=== PATIENT | female | born 1965 | race Caucasian/White ===

== ENCOUNTER 2020-03-28 11:40 | Observation (INO) | payer OTHER ==
[2020-03-28] VITALS (7 sets, daily range): BP systolic 90–115; BP diastolic 59–80
[~2020-03-28 11:40] MED LIST: MTX2.5T PO; MULT-974 PO; TRM50T PO
--- NOTE | 2020-03-28 13:58 | NUR ---
PT ARRIVES VIA EMS. PT TRANSFERS TO BED WITH NO DIFFICULTIES. CARDIZEM AND AMIODARONE INFUSING AT THIS TIME. DR MOULTON AND DR PINK NOTIFIED OF PATIENTS ARRIVAL. EKG OBTAINED, PT APPEARS IN NSR RATE 74 UPON ADMISSION. SBP 90'S AT THIS TIME. PT REPORTS THIS IS HER NORMAL BLOOD PRESSURE.
--- NOTE | 2020-03-28 15:41 | Consultation-Cardiology ---
HPI-Cardiology Cardiology Consultation: Date of Consultation 03/28/20 Date of Admission Attending Physician Bianca Pink MD Admitting Physician [facility] Consulting Physician Tyree PARSONS MD HPI: Time Seen by a Provider: 15:00 Chief Complaint: Palpitations This is a 55-year-old lady with history of atrial fibrillation. She presents to an outside ER with complains of palpitations. She has history of active smoking. Pertinent family history is negative. She was found to be in typical atrial flutter. Adenosine was given with slow down the heart rate, she then converted to atrial fibrillation. The ER nurse practitioner called me over the phone and we gave Cardizem as well as amiodarone. By the time the patient reached our hospital she had converted to sinus rhythm. She denies any chest pain or shortness of breath. Review of Systems-Cardiology Review of Systems Constitutional: As described under HPI; No As described under HPI, No no symptoms reported, No chills, No fever, No lightheadedness Eyes: No As described under HPI, No no symptoms reported, No blindness, No blurred vision, No contact lenses, No drainage, No decreased acuity, No foreign body sensation, No pain, No vision change Ears/Nose/Throat: No As described under HPI, No no symptoms reported, No chronic hearing loss, No ear discharge, No ear pain, No nasal drainage, No ulcerations Respiratory: No no symptoms reported; As described under HPI; No As described under HPI, No cough, No orthopnea, No shortness of breath, No SOB with excertion Cardiovascular: No no symptoms reported; As described under HPI; No As described under HPI, No chest pain, No edema, No irregular heart rate, No lightheadedness; palpitations Gastrointestinal: No no symptoms reported, No As described under HPI, No abdomen distended, No abdominal pain, No blood streaked bowels, No constipation, No diarrhea, No nausea, No vomiting, No stool coloration changes Genitourinary: No As described under HPI, No burning, No dysuria, No discharge, No frequency, No flank pain, No hematuria, No urgency : Yes : No Skin: No rash, No skin related problems, No ulcerations Psychiatric/Neurological: No anxiety, No depression, No seizure, No focal weakness, No syncope Hematologic: No bleeding abnormalities KRF-[id number]-Rgmpji Hx Past Medical History PMH As described under Assessment. Allergies and Home Medications Allergies Coded Allergies: Penicillins (Unverified Allergy, Unknown, 10/14/06) erythromycin base (Unverified Allergy, Unknown, 10/14/06) meloxicam (Unverified Allergy, Unknown, 10/14/06) morphine (Unverified Allergy, Unknown, 10/14/06) tetracycline (Unverified Allergy, Unknown, 10/14/06) Home Medications Apixaban 5 Mg Tablet, 5 MG PO BID Prescribed by: BIANCA PINK on 03/28/201946 Methotrexate 2.5 Mg Tab, 1 EACH PO 4 times weekly, (Reported) Multivitamin 1 Each Tablet, 1 EACH PO DAILY, (Reported) Tramadol Hcl 50 Mg Tab, 50 MG PO Q6H Prescribed by: KELLIE FAIRCHILD on 05/05/12 2246 Patient Home Medication List Home Medication List Reviewed: Yes Physical Exam-Cardiology Physical Exam Vital Signs/I&O Capillary Refill : Constitutional: appears stated age; No apparent distress; well-developed, well- nourished HEENT: PERRL; No discharge; hearing is well preserved, oral hygience is good; No ulceration, No xanthelasmas are seen Neck: No carotid bruit; carotid pulses are 2 + bilaterally Respiratory: chest is bilaterally symmetric, lungs clear to auscultation Cardiovascular: regular rate-rhythm, S1 and S2; No diastolic murmur, No systolic murmur Gastrointestinal: soft, audible bowel sounds; No spleenomegaly Rectal: deferred Extremities: normal range of motion, non-tender, normal inspection; No clubbing, No cyanosis; no lower extremity edema bilateral; No significant edema Neurologic/Psychiatric: no motor/sensory deficits, alert, normal mood/affect, oriented x 3, power is 5/5 both on sides Skin: normal color; No rash, No ulcerations Data Review Labs ECG Impression ECG Comment First EKG from outside hospital shows typical atrial flutter with 2-1 AV block. Next EKG shows atrial fibrillation with RVR. Sinus rhythm in our hospital. A/P-Cardiology Assessment/Admission Diagnosis Typical atrial flutter, Atrial fibrillation with RVR, Active smoking, Hyperglycemia Plan Typical atrial flutter which degenerated into atrial fibrillation. Currently in sinus rhythm. I discussed at length about typical atrial flutter ablation. Informed consent was taken. 1 percent risk of major complication including . Patient accepts the risk and would like to proceed. We will arrange it on . Patient will continue Eliquis. By mouth Cardizem. Request an echocardiogram. Atrial fibrillation with RVR, converted on IV amiodarone. DC amiodarone infusion. Change Cardizem to by mouth. Echocardiogram before discharge. Smoking cessation was strongly recommended. Hyperglycemia, diabetes needs to be ruled out. Defer to the primary team. Thank you for your consultation. Please call me if you have any questions. Howard Parsons MD, FACP, FACC, FSCAI, FHRS, CCDS Interventional Cardiology Cardiac Electrophysiology Vascular Medicine and Endovascular Interventions Tyree PARSONS MD Mar 28, 2020 15:41
[2020-03-28] MEDS ORDERED: dilTIAZem120 MG (CARDIZEM CD) CAP PO ONE (16:04)
--- NOTE | 2020-03-28 17:00 | NUR ---
DR MOULTON WOULD LIKE EP STUDY DONE ON SATURDAY OF THIS WEEK. SPOKE WITH TIM, HIS RN, TIM STATES THAT SHE WILL BE UNABLE TO SCHEDULE UNTIL PATIENT SPEAKS WITH FINANCIAL SERVICES SINCE SHE IS SELF PAY. THIS RN SPOKE WITH [employer] AND RECEIVED PHONE NUMBERS FOR TWO STAFF IN FINANCIAL SERVICES. THIS WAS GIVEN TO PATIENT. LM WITH TIM AT DR ABDI OFFICE TO UPDATE. DR ABDI OFFICE NUMBER GIVEN TO PATIENT. CALLED DR MOULTON AND UPDATED. UPDATED ON SBP IN THE 90'S AND UNABLE TO GIVE PO CARDIZEM. ALL DRIPS OF AT THIS TIME PER DR MOULTON. DR MOULTON STATED THAT HE IS OK WITH NOT GIVING PO CARDIZEM AND IS OK WITH PATIENT GOING HOME TONIGHT. DR PINK NOTIFIED.
--- NOTE | 2020-03-28 19:37 | Short Stay Summary ---
HPI History of Present Illness: 55 yo F that presented to [facility] in Atrial fibrillation in RVR. Dr Parsons was called and gave patient amiodarone bolus and gtts and was started on cardizem drip. Patient states that she feels when her heart starts racing. She had an episode on Saturday that last about 30 mins that also had some chest pain with it. She denies any history of CAD or stents. She was started on inhalers last week for COPD. States that she is feeling so much better now. She has been in SR since her arrival. Source: patient, family Exam Limitations: no limitations Date seen by provider: Mar 28, 2020 Time Seen by Provider: 19:38 Attending Physician Bianca Cuevas MD [facility] Consult Date of Admission Mar 28, 2020 at 13:48 Home Medications Home Medications Reviewed patient Home Medication Reconciliation performed by pharmacy medication reconciliations patient care technician and/or nursing. Patients Allergies have been reviewed. Allergies Coded Allergies: Penicillins (Unverified Allergy, Unknown, 10/14/06) erythromycin base (Unverified Allergy, Unknown, 10/14/06) meloxicam (Unverified Allergy, Unknown, 10/14/06) morphine (Unverified Allergy, Unknown, 10/14/06) tetracycline (Unverified Allergy, Unknown, 10/14/06) RLW-Igwkcl-Uszwne Hx Past Medical History COPD Tobacco Abuse Review of Systems ([facility]) Constitutional: no symptoms reported; No chills, No fever, No malaise EENTM: no symptoms reported; No mouth pain, No nose congestion, No throat pain Respiratory: cough (chronic); No dyspnea on exertion, No short of breath Cardiovascular: No chest pain, No edema; palpitations Gastrointestinal: no symptoms reported; No abdominal pain, No constipation, No diarrhea, No nausea, No vomiting Genitourinary: no symptoms reported; No dysuria, No frequency, No hematuria : No Musculoskeletal: no symptoms reported; No back pain, No muscle pain Skin: no symptoms reported; No lesions, No rash Psychiatric/Neurological: No Symptoms Reported Reviewed Test Results Reviewed Test Results Lab Laboratory Tests Test 03/28/20 15:21 Range/Units Troponin I < 0.028 <0.028 NG/ML B-Type Natriuretic Peptide 12.7 <100.0 PG/ML Physical Exam-([facility]) Physical Exam Vital Signs VS - Last 72 Hours, by Label 03/28/20 03/28/20 03/28/20 03/28/20 14:00 14:54 15:00 15:59 Temp 36.2 Pulse 72 72 Resp 44 18 B/P (MAP) 100/76 (84) 115/74 (88) Pulse Ox 96 97 O2 Delivery Room Air Room Air 03/28/20 03/28/20 03/28/20 16:00 17:00 18:00 Pulse 78 91 70 Resp 44 18 29 B/P (MAP) 90/62 (71) 100/80 (87) 97/59 (72) Pulse Ox 98 96 96 O2 Delivery Room Air Room Air Room Air Capillary Refill : General Appearance: WD/WN, no apparent distress HEENT: PERRL/EOMI Neck: non-tender, full range of motion, supple Respiratory: chest non-tender, lungs clear, normal breath sounds, no respiratory distress, no accessory muscle use Cardiovascular: normal peripheral pulses, regular rate, rhythm, no edema, no murmur Gastrointestinal: normal bowel sounds, non tender, soft, no organomegaly Back: no CVA tenderness, no vertebral tenderness Extremities: normal range of motion, non-tender, normal inspection, no pedal edema, no calf tenderness, normal capillary refill Neurologic/Psychiatric: oracle bpm consultant II-XII nml as tested, no motor/sensory deficits, alert, normal mood/affect, oriented x 3 Skin: normal color, warm/dry Lymphatic: no adenopathy Short Stay Diagnosis Discharge Diagnosis-Short Stay Admission Diagnosis Atrial Fibrillation with RVR Chronic COPD Tobacco Abuse Final Discharge Diagnosis See Above Conclusion Plan See problem list Copy Copies To 1: [facility] Assessment/Plan Assessment/Plan Admission Status: Observation (1) Atrial fibrillation with RVR Status: Acute Assessment & Plan: 03/28: Dr Parsons consulted out of the ED, Patient started on OAC, unable to start daily cardizem due to low blood pressures. Echo done today, pending results, CE x3 neg, patient in SR, Dr Parsons ok with patient discharge to have outpatient EP study (2) Tobacco abuse Status: Acute Assessment & Plan: - Discussed the need for cessation BIANCA CUEVAS MD Mar 28, 2020 19:37
[2020-03-28] MEDS ORDERED: APIX5TAB PO (19:47)
--- NOTE | 2020-03-28 19:48 | Discharge Summary ---
Discharge [facility] Reconcile Patient Problems Problems Reviewed?: Yes Discharge Medications New, Converted or Re-Newed RX: Transmitted to Pharmacy New Medications: Apixaban (Eliquis) 5 Mg Tablet 5 MG PO BID, #60 TAB Continued Medications: Methotrexate (Methotrexate) 2.5 Mg Tab 1 EACH PO 4 times weekly Multivitamin (Multi Vitamin Daily) 1 Each Tablet 1 EACH PO DAILY Tramadol Hcl (Ultram) 50 Mg Tab 50 MG PO Q6H, #30 Patient Instructions Goal/Follow Up Appt: Will have f.u with [facility] PCP this week Will have f.u with Cardiology for EP study Activity & Diet Discharge Diet: Cardiac Diet Activity as Tolerated: Yes BIANCA PINK MD Mar 28, 2020 19:48
[2020-03-28] MEDS ORDERED: APIXABAN 5 MG (ELIQUIS) TABLET PO SCH (21:00)
[2020-03-29] MEDS ORDERED: dilTIAZem120 MG (CARDIZEM CD) CAP PO SCH (09:00)
== END 2020-03-28 19:44 | disposition home or self-care (01) ==
LOC: ICU 13:48 → INTOOBSV 13:48 → UNDOADMOB 13:48 → ICU 13:58 → UNDODISOB 20:20
PROVIDERS: ADMIT Family Medicine; ATTEND Family Medicine
DX: I48.91 Unspecified atrial fibrillation (principal); E72.51 Non-ketotic hyperglycinemia; J44.9 Chronic obstructive pulmonary disease, unspecified; F17.210 Nicotine dependence, cigarettes, uncomplicated; Z79.01 Long term (current) use of anticoagulants; Z79.899 Other long term (current) drug therapy; Z88.0 Allergy status to penicillin; Z88.1 Allergy status to other antibiotic agents; Z88.5 Allergy status to narcotic agent
CPT/HCPCS: 83880; 84484; 93005; 93306; G0378; G0379; 36415; 99211

== ENCOUNTER 2020-04-01 06:59 | Day surgery (SDC) | payer OTHER ==
[2020-04-01] VITALS (20 sets, daily range): BP systolic 95–136; BP diastolic 59–79
[~2020-04-01] VITALS: Ht 160 cm; Wt 45.5 kg
[~2020-04-01 06:59] MED LIST changes: +APIX5TAB PO
[2020-04-01] MEDS ORDERED: NS IV 1000 ML 1,000 ML IV SCH (07:16)
[2020-04-01] MEDS ORDERED: HEParin (CATH LAB) 2,000 ML IV ONE (07:18)
[2020-04-01] MEDS ORDERED: LIDOCAINE 1% INJ 20 ML 20 ML VIAL ONE (07:18)
[2020-04-01] MEDS ORDERED: NS IV 1000 ML 1,000 ML ONE ×2 (07:18→09:44)
[2020-04-01] MEDS ORDERED: ISOPROTERENOL 0.2 MG/D5W 50 ML IV ONE (07:30)
[2020-04-01] MEDS ORDERED: MIDAZOLAM 2 MG/2 ML (VERSED) VIAL ONE (07:36)
[2020-04-01] MEDS ORDERED: ONDANSETRON 4 MG/2 ML (SDV) Z0FRAN ONE (07:36)
[2020-04-01] MEDS ORDERED: PROPOFOL DRIP (ICU) 100 ML IV ONE (07:36)
[2020-04-01] MEDS ORDERED: fentaNYL INJECTION 100 MCG/2 ML AMP ONE (07:37)
[2020-04-01 07:45] LABS: PROTHROMBIN TIME PATIENT 13.4 SEC (12.2-14.7)
[2020-04-01 07:54] LABS: ALBUMIN 3.9 GM/DL (3.2-4.5); BILIRUBIN,TOTAL 0.2 MG/DL (0.1-1.0); CALCIUM 9.2 MG/DL (8.5-10.1); CREATININE SERUM 1.04 MG/DL (0.60-1.30); TOTAL PROTEIN 6.8 GM/DL (6.4-8.2)
[2020-04-01] MEDS ORDERED: RT-ALBUINH INH (07:54)
[2020-04-01] MEDS ORDERED: BUDE10.2 IH (07:54)
[2020-04-01] MEDS ORDERED: TIOT18CA2 IH (07:54)
[2020-04-01 08:38] LABS: HEMOGLOBIN 13.8 G/DL (11.5-16.0); MEAN PLATELET VOLUME 9.6 FL (7.4-10.4); WHITE BLOOD COUNT 7.5 10^3/uL (4.3-11.0)
[2020-04-01] MEDS ORDERED: KETAMINE HCL 100 MG/ML 5 ML VIAL ONE (08:46)
[2020-04-01] MEDS ORDERED: PHENYLEPHRINE 100 MCG/ML 10 ML (ANESTHESIA) SYR ONE (09:21)
[2020-04-01] MEDS ORDERED: ROCURONIUM 10 MG/ML 5 ML SYRINGE IV ONE (09:31)
[2020-04-01] MEDS ORDERED: SEVOFLURANE (ULTANE) 15 ML INHAL SOLN ONE (09:44)
[2020-04-01] MEDS ORDERED: GLYCOPYRROLATE 0.2 MG/ML (ROBINUL) 2 ML VIAL ONE (10:02)
[2020-04-01] MEDS ORDERED: NEOSTIGMINE 3 MG/3 ML VIAL ONE (10:02)
--- NOTE | 2020-04-01 10:42 | Electrophysiology Procedure ---
EP Procedure Typical Atrial Flutter Ablation DATE OF SERVICE:04/01/20 CARDIAC JOB SETTER: Howard Parsons MD, [facility] INDICATION: typical atrial flutter. PREOPERATIVE DIAGNOSIS: typical atrial flutter. POSTOPERATIVE DIAGNOSES: typical atrial flutter ablation. HISTORY: this is a 55-year-old lady who presented with typical atrial flutter which degenerated to atrial fibrillation.The patient is planned for comprehensive EP study and ablation. PROCEDURE PERFORMED: 1. Comprehensive EP study with induction. 2. Fluoroscopy. 3. left atrial pacing and recording 4. Drug infusion. 5. Ablation of typical atrial flutter. 6. Comprehensive 3D mapping with the carto system. COMPLICATION: None. ESTIMATED BLOOD LOSS: 10 mL. CONTRAST USED: None. FLUOROSCOPY TIME: 2 minutes 10 seconds. FLUOROSCOPY DOSE: 7 mgy. SPECIMENS: None. ANESTHESIA: Done by our anesthesia colleagues. ANTICOAGULATION: Eliquis PROCEDURE IN DETAIL: After informed consent was taken, the patient was brought to the EP lab. Anesthesia was provided by our anesthesia colleagues. The patient was draped and prepped in the usual sterile fashion. The patient presented to the EP lab in sinus rhythm. Access was gained in the right femoral vein with a 6-Faroese and an 8-Faroese sheath. High right atrial catheter was an ablation catheter and the CS catheter were also placed. A comprehensive EP study was done including left atrial pacing and recording which did not demonstrate a left lateral bypass tract. Typical atrial flutter was not induced with rapid atrial pacing with and without Isuprel infusion. A 3D electroanatomic mapping was donewith the carto system. Ablation was performed in the cavotricuspid isthmus.CS pacing and pacing from the ablation catheter at different positions on the lateral side of the ablation line were used to verify bidirectional block. We then waited for 30 minutes and rechecked and confirmed bidirectional block.Isuprel was given post-procedure, however, we could not induce atrial flutter.The patienttolerated the procedure well and did not have any complication. The patientleft the lab in sinus rhy thm. Total ablation time was 168 seconds. MEASUREMENTS/EP STUDY: AA interval 800 ms, WI interval 303 ms, QRS duration 54 ms, QT interval 354 ms, R-R interval 786 ms, AV Wenckebach when pacing at 480 ms cl, RV pacing did not demonstrate any retrograde conduction at pacing cycle length 600 ms, Atrial ERP was 600/280 ms. PLAN: The patient will be observed overnight and will be discharged home tomorrow with precise followup instructions. Howard Parsons MD, [facility] Cardiac Electrophysiology Tyree PARSONS MD Apr 01, 2020 10:42
[2020-04-01] MEDS ORDERED: PATIENT MAY USE OWN MEDS, ALL PO SCH (10:45)
--- NOTE | 2020-04-01 10:59 | Anesthesia-General Post-Op ---
General Patient Condition Mental Status/LOC: Same as Preop Cardiovascular: Satisfactory Nausea/Vomiting: Absent Respiratory: Satisfactory Pain: Controlled Complications: Absent Post Op Complications Complications None Follow Up Care/Instructions Patient Instructions None needed. Anesthesia/Patient Condition Patient Condition Patient is doing well, no complaints, stable vital signs, no apparent adverse anesthesia problems. No complications reported per nursing. JACQUELINE LICONA CRNA Apr 01, 2020 10:58
[2020-04-01] MEDS ORDERED: ONDANSETRON 4 MG/2 ML (SDV) Z0FRAN IVP PRN ×2 (11:00→12:15)
[2020-04-01] MEDS ORDERED: IBUPROFEN 600 MG (MOTRIN) TAB PO ONE (12:10)
[2020-04-01] MEDS: NS IV 1000 ML 1,000 ML IV SCH ×2 (12:15→14:14)
[2020-04-01] MEDS: IBUPROFEN 600 MG (MOTRIN) TAB PO PRN ×2 (12:15→21:51)
[2020-04-01] MEDS: APIXABAN 5 MG (ELIQUIS) TABLET PO SCH (21:49)
[2020-04-02 01:00] VITALS: BP 115/63
[2020-04-02 04:24] VITALS: BP 117/73
[2020-04-02] MEDS: NS IV 1000 ML 1,000 ML IV SCH (06:33)
[2020-04-02 07:09] LABS: HEMOGLOBIN 11.5 G/DL (11.5-16.0); MEAN PLATELET VOLUME 9.9 FL (7.4-10.4); WHITE BLOOD COUNT 7.4 10^3/uL (4.3-11.0)
[2020-04-02 07:24] LABS: CHLORIDE 110 MMOL/L (98-107); SODIUM 137 MMOL/L (135-145)
[2020-04-02 07:25] LABS: CALCIUM 8.2 MG/DL (8.5-10.1); GLUCOSE 134 MG/DL (70-105)
[2020-04-02 07:27] LABS: CARBON DIOXIDE 19 MMOL/L (21-32)
[2020-04-02 07:29] LABS: GFR ESTIMATED > 60
[2020-04-02 07:30] LABS: BUN/CREATININE RATIO 10
[2020-04-02 09:35] VITALS: BP 118/74
[2020-04-02] MEDS: APIXABAN 5 MG (ELIQUIS) TABLET PO SCH (09:37)
--- NOTE | 2020-04-02 10:41 | Anesthesia-General Post-Op ---
General Patient Condition Mental Status/LOC: Same as Preop Cardiovascular: Satisfactory Nausea/Vomiting: Absent Respiratory: Satisfactory Pain: Controlled Complications: Absent Post Op Complications Complications None Follow Up Care/Instructions Patient Instructions None needed. Anesthesia/Patient Condition Patient Condition Patient is doing well, no complaints, stable vital signs, no apparent adverse anesthesia problems. No complications reported per nursing. SETH STUART CRNA Apr 02, 2020 10:41
[2020-04-02 14:37] VITALS: BP 111/74
--- NOTE | 2020-04-02 15:17 | Cardiology Discharge Summary ---
Diagnosis/Chief Complaint Date of Admission 04/01/2020 Date of Discharge 04/02/2020 Admission Diagnosis Typical atrial flutter, paroxysmal atrial fibrillation Final/Discharge Diagnosis Successful typical atrial flutter ablation. Chief Complaint/HPI Chief Complaint/HPI Typical atrial flutter, paroxysmal atrial fibrillation Discharge Summary Procedures Successful typical atrial flutter ablation. Discharge Physical Examination Normal cardiovascular examination. Hospital Course Was the Problem List Reviewed?: Yes Unremarkable. Discussion & Recommendations Discussion Discharge took over 30 minutes to complete. I discussed the procedure at length with the patient and family. Patient will continue on Eliquis. Event monitor as an outpatient. I will follow-up in one to 2 weeks. Follow up appt.: Dr. Parsons in one to 2 weeks. Activity as Tolerated: Yes Home Medications Reviewed patient Home Medication Reconciliation performed by pharmacy medication reconciliations compressor service technician and/or nursing. Patients Allergies have been reviewed. Discharge Home Medications: Reviewed and agree with Discharge Medication list on patient's Discharge Instruction sheet Condition at discharge Stable. Instructions to patient/family Discussed with the patient and family. Tyree PARSONS MD Apr 02, 2020 15:17
[2020-04-02 15:29] VITALS: BP 111/74
== END 2020-04-02 15:32 | disposition home or self-care (01) ==
LOC: CATH 06:59 → CSD 11:55 → CATH 04-02 15:32
PROVIDERS: ATTEND Internal Medicine Interventional Cardiology
DX: I48.3 Typical atrial flutter (principal); I48.0 Paroxysmal atrial fibrillation; K21.9 Gastro-esophageal reflux disease without esophagitis; F17.210 Nicotine dependence, cigarettes, uncomplicated; Z79.899 Other long term (current) drug therapy; Z79.01 Long term (current) use of anticoagulants
CPT/HCPCS: 80048; 80053; 85027 ×2; 85610; 85730; 87081; 93005 ×2; 93613; 93621; 93653; C1730 ×3; C1732; C1894 ×2; 36415

== ENCOUNTER 2020-05-23 11:00 | Outpatient (RCR) | payer OTHER ==
[~2020-05-23 11:00] MED LIST changes: +BUDE10.2 IH; +RT-ALBUINH INH; +TIOT18CA2 IH
== END 2020-08-21 | disposition home or self-care (01) ==
LOC: CARD 11:00
PROVIDERS: ATTEND Internal Medicine Interventional Cardiology
DX: I48.0 Paroxysmal atrial fibrillation (principal)
CPT/HCPCS: 93270

== ENCOUNTER → 2020-10-05 | Day surgery (SDC) | payer OTHER ==
[~2020-10-05] VITALS: Ht 160 cm; Wt 45.0 kg
[~2020-10-05] MED LIST changes: +LIDOCAINE 1% INJ 20 ML 20 ML VIAL INJ ONE; +LIDOCAINE 1% INJ 20 ML 20 ML VIAL ONE; +REGADENOSON 0.4 MG/5 ML SYR (LEXISCAN) IV ONE
[2020-10-05] MEDS: CATHETER FLUSH 10 ML SYR IV PRN ×2 (11:43→13:06)
[2020-10-05 11:46] LABS: ALANINE AMINOTRANSFERASE 14 U/L (0-55); ALBUMIN 3.9 GM/DL (3.2-4.5); ALKALINE PHOSPHATASE 60 U/L (40-136); BILIRUBIN,TOTAL 0.4 MG/DL (0.1-1.0); BUN/CREATININE RATIO 18; CALCIUM 9.1 MG/DL (8.5-10.1); CARBON DIOXIDE 22 MMOL/L (21-32); CHLORIDE 111 MMOL/L (98-107); CHOLESTEROL 159 MG/DL (< 200); CREATININE SERUM 0.85 MG/DL (0.60-1.30); GFR ESTIMATED > 60; GLUCOSE 85 MG/DL (70-105); HDL CHOLESTEROL 54 MG/DL (40-60); POTASSIUM 4.4 MMOL/L (3.6-5.0); SODIUM 141 MMOL/L (135-145); TOTAL PROTEIN 6.6 GM/DL (6.4-8.2); TRIGLYCERIDES 64 MG/DL (<150); VLDL CHOLESTEROL 13 MG/DL (5-40)
[2020-10-05 12:44] VITALS: BP 128/70
--- NOTE | 2020-10-05 14:49 | Implantation of Loop Monitor ---
Implant of Loop Monitior IMPLANTATION OF LOOP MONITOR REPORT DATE OF PROCEDURE: 10/05/20 PREOP DIAGNOSIS: Paroxysmal atrial fibrillation POSTOP DIAGNOSIS: Paroxysmal atrial fibrillation PROCEDURE DETAILS: The patient is a 55 female with history of paroxysmal atrial fibrillation requiring long-term surveillance. Therefore implantable loop recorder was discussed and agreed with the patient. Informed consent was taken. All risks and complications were discussed at length. The patient was draped and prepped in the usual sterile fashion. Local anesthesia was lidocaine, which was given in the substernal area close to the 4th intercostal space. Loop monitor [employer] with serial number [id number] was implanted according to the protocol. Steri- Strips were placed at the end of the procedure. There were no complications and the patient tolerated the procedure well. The device was interrogated with a voltage of. ANESTHESIA: Local anesthesia with lidocaine. COMPLICATIONS: None CONTRAST/FLUOROSCOPY: None CONCLUSION: Successful implantation of loop monitor with no complication FINAL DIAGNOSIS: Paroxysmal atrial fibrillation Palpitation Chest pain Hypertension RENETTA CLARK MD Oct 05, 2020 14:49
--- NOTE | 2020-10-05 14:52 | Cardiology Stress Test Report ---
Stress Test Report Date of Procedure/Referring: Date of Procedure: Oct 05, 2020 PCP Renetta Ruby MD Admitting Physician Center/[facility] Indications: PAF Baseline Heart Rate: 69 Baseline Blood Pressure: Blood Pressure Systolic: 128 Blood Pressure Diastolic: 70 Baseline Vitals Vital Signs Date Time Temp Pulse Resp B/P (MAP) Pulse Ox O2 Delivery O2 Flow Rate FiO2 10/05/20 12:44 70 14 128/70 (89) 98 Room Air Baseline EKG: Baseline EKG: NSR, Summary After explaining the procedure to the patient, she signed a consent and then brought to the stress nuclear laboratory. Patient received 0.4 mg Lexiscan for stress test, ECG, heart rate and blood pressure were monitored continuously. Resting and stress dose of radio tracer were injected, imaging was acquired and reviewed in short axis, horizontal long axis and vertical long axis views. TID: 1.1 SSS: 2 SDS: 2 EF: 75 1. Patient tolerated Lexiscan well 2. Breast attenuation with mild decreased uptake at the apex with subtle reversibility, no significant ischemia or infarction. 3. Normal LV size, EF 75 percent RENETTA RUBY MD Oct 05, 2020 14:52
== END ==
LOC: CATH 10:50
PROVIDERS: ATTEND Internal Medicine Cardiovascular Disease
DX: I48.0 Paroxysmal atrial fibrillation (principal); R07.9 Chest pain, unspecified; I10 Essential (primary) hypertension; I48.92 Unspecified atrial flutter; E78.2 Mixed hyperlipidemia; F17.210 Nicotine dependence, cigarettes, uncomplicated; Z79.01 Long term (current) use of anticoagulants; Z88.0 Allergy status to penicillin; Z88.1 Allergy status to other antibiotic agents; Z88.5 Allergy status to narcotic agent; Z88.8 Allergy status to other drugs, medicaments and biological substances
CPT/HCPCS: 33285; 78452; 80053; 80061; 93017; A9502; C1764; 36415

== ENCOUNTER → 2022-04-16 | Outpatient (CLI) | payer OTHER ==
[~2022-04-16] MED LIST changes: -LIDOCAINE 1% INJ 20 ML 20 ML VIAL INJ ONE; -LIDOCAINE 1% INJ 20 ML 20 ML VIAL ONE; -REGADENOSON 0.4 MG/5 ML SYR (LEXISCAN) IV ONE
--- NOTE | 2022-04-16 13:40 | Diagnostic Imaging Report ---
Clinical indications: Patient with chronic spine pain. Exam: MRI of the cervical spine performed without IV contrast. Sequences include sagittal T1, sagittal T2, sagittal T2 fat-sat, and axial T2. Comparison: MRI of the cervical spine without contrast dated 05/14/2012. Findings: There is no acute cervical spine fracture or dislocation. There is no abnormal Modic vertebral body signal. Limited visualization of the intracranial structures and cervical spine show no significant abnormality. C1-C2: There are degenerative spurs involving the atlantoodontoid interval. There is no significant central canal stenosis. C2-C3: There is no significant central spinal canal or neural foramen narrowing. C3-C4: There is no significant central spinal canal or neural foramen narrowing. C4-C5: There is no significant central spinal canal or neural foramen narrowing. C5-C6: Interval subtle ligamentum flavum buckling and subtle posterior disk bulge. There is interval mild central canal narrowing. There is no significant neural foramen narrowing. C6-C7: There is interval ligament flavum buckling. There is interval mild central canal narrowing. There is no significant neural foramen narrowing. C7-T1: Stable mild right facet arthropathy. There is no significant central spinal canal or neural foramen narrowing. IMPRESSION: There is slight progression of cervical spine degenerative disease with no significant central canal or neural foramen narrowing. Dictated by: Dictated on workstation # [id number]
--- NOTE | 2022-04-16 13:45 | Diagnostic Imaging Report ---
PROCEDURE: MRI lumbar spine. TECHNIQUE: Multiplanar, multisequence MRI of the lumbar spine was performed without contrast. INDICATION: Chronic back pain. COMPARISON: 05/14/2012. FINDINGS: For the purposes of this exam, last well-formed disc space is denoted the L5-S1 level. Static alignment of the lumbar spine is maintained. There is no significant yessenia- or retro-listhesis. There is no evidence of jumped facets. Vertebral body heights are maintained. There is no acute fracture. Evaluation of the marrow signal demonstrates Modic type I change involving the anterior inferior corner of the L1 vertebral body. Intervertebral disc heights are also well maintained, although there is loss of normal fluid-type bright signal at the L5-S1 level. Visualized portions of the distal cord are unremarkable. Conus terminates at approximately the L1-L2 level. No abnormal intrathecal filling defects are seen. Pre- and para-vertebral soft tissue structures are unremarkable. Axial images demonstrate the following: T12-L1 and L1-L2: There is no large disc bulge or focal protrusion. There is no significant spinal canal or neural foraminal stenosis. L2-L3: There is slight broad-based posterior disc bulge and bilateral ligamentum flavum laxity and facet arthropathy. As a result, there is minimal narrowing of the spinal canal and bilateral neural foramina. L3-L4 and L4-L5: There is bilateral ligamentum flavum laxity and facet arthropathy. There is no large disc bulge or focal protrusion. Additionally, there is no significant spinal canal or neural foraminal stenosis. L5-S1: There is slight broad-based posterior disc bulge, eccentric to the right. There is also bilateral facet arthropathy, left greater than right. As a result, there is minimal narrowing of the neural foramina. Spinal canal is unremarkable. IMPRESSION: 1. No acute fracture or dislocation of the lumbar spine. 2. Mild multilevel degenerative changes as above. Dictated by: Dictated on workstation # [id number]
== END ==
LOC: RAD 13:15
PROVIDERS: ATTEND Nurse Practitioner
DX: M47.817 Spondylosis without myelopathy or radiculopathy, lumbosacral region (principal); M51.27 Other intervertebral disc displacement, lumbosacral region; M47.812 Spondylosis without myelopathy or radiculopathy, cervical region; F32.9 Major depressive disorder, single episode, unspecified
CPT/HCPCS: 72141; 72148

== ENCOUNTER → 2022-06-07 | Outpatient (CLI) | payer OTHER ==
[2022-06-07 10:30] LABS: BILIRUBIN,TOTAL 0.5 MG/DL (0.1-1.0); CALCIUM 9.9 MG/DL (8.5-10.1); CREATININE SERUM 0.88 MG/DL (0.60-1.30); POTASSIUM 4.3 MMOL/L (3.6-5.0)
== END ==
LOC: CARD 09:25
PROVIDERS: ATTEND Physician Assistant
DX: I48.0 Paroxysmal atrial fibrillation (principal); I48.92 Unspecified atrial flutter; E78.2 Mixed hyperlipidemia; I10 Essential (primary) hypertension
CPT/HCPCS: 80053; 80061; 84443; C8929; 36415; 93306

== ENCOUNTER → 2022-07-09 | Outpatient (CLI) | payer OTHER ==
[~2022-07-09] VITALS: Ht 160 cm; Wt 46.0 kg
[~2022-07-09] MED LIST changes: +REGADENOSON 0.4 MG/5 ML SYR (LEXISCAN) IV ONE
[2022-07-09] MEDS: CATHETER FLUSH 10 ML SYR IVP PRN ×2 (08:19→09:50)
[2022-07-09 09:41] VITALS: BP 90/72
--- NOTE | 2022-07-09 12:31 | Cardiology Stress Test Report ---
Stress Test Report Date of Procedure/Referring: Date of Procedure: Jul 09, 2022 [facility] Admitting Physician Admitting Physician: Attending Physician: Kimberly Lamb Baseline Heart Rate: 62 Baseline Blood Pressure: Blood Pressure Systolic: 90 Blood Pressure Diastolic: 72 Baseline Vitals Vital Signs Date Time Temp Pulse Resp B/P (MAP) Pulse Ox O2 Delivery O2 Flow Rate FiO2 07/09/22 09:41 67 90/72 (78) 98 Baseline EKG: Baseline EKG: NSR Summary After explaining the procedure to the patient, she signed a consent and then brought to the stress nuclear laboratory. Patient received 0.4 mg Lexiscan for stress test, ECG, heart rate and blood pressure were monitored continuously. Resting and stress dose of radio tracer were injected, imaging was acquired and reviewed in short axis, horizontal long axis and vertical long axis views. TID: 1.15 SSS: 1 SDS: 1 EF: 73 1. Patient was unable to exercise beyond 3-minute and 45 seconds on standard Sreedhar protocol, did not achieve her target heart rate, test was converted to Lexiscan Myoview stress test 2. Patient tolerated Lexiscan well 3. No significant ischemia or infarction on SPECT images 4. Normal left ventricular size, ejection fraction 73% Copy Copies To 1: [facility]RENETTA FORREST MD Jul 09, 2022 12:31
== END ==
LOC: CARD 08:30
PROVIDERS: ATTEND Physician Assistant
DX: I10 Essential (primary) hypertension (principal)
CPT/HCPCS: 78452; 93017; A9502

== ENCOUNTER → 2022-07-12 | Outpatient (CLI) | payer OTHER ==
[~2022-07-12] MED LIST changes: -REGADENOSON 0.4 MG/5 ML SYR (LEXISCAN) IV ONE
--- NOTE | 2022-07-12 12:18 | Diagnostic Imaging Report ---
CLINICAL INDICATION: Patient with chronic spine pain. EXAM: MRI of the thoracic spine performed without IV contrast. Sequences include sagittal T1, sagittal T2, sagittal STIR, T2 fat-sat, and axial T2. COMPARISON: None. FINDINGS: There is motion artifact limiting some portions of this exam, especially the axial T2 sequence. Thoracic spine has normal alignment with no fracture or dislocation. There is no abnormal paraspinal soft tissue signal or abnormality. The thoracic spinal cord has normal anatomic appearance with no abnormal cord signal. The thoracic vertebra have normal signal characteristics. There are degenerative spurs anteriorly involving the mid to lower thoracic spine. There is no significant disk bulge or herniation posteriorly. There are multiple bilateral perineural cysts seen from the T8 level through the T11 level. The largest one measures 14 mm in craniocaudal dimensions at the left T10-T11 level. The intervertebral disk heights are well-preserved. There is no significant central spinal canal or neural foramen narrowing. 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 2: Incidental note of multiple perineural cysts involving the lower thoracic spine. Dictated by: Dictated on workstation # [id number]
== END ==
LOC: RAD 08:45
PROVIDERS: ATTEND Nurse Practitioner
DX: M47.814 Spondylosis without myelopathy or radiculopathy, thoracic region (principal); G96.191 Perineural cyst
CPT/HCPCS: 72146